=== PATIENT | male | born 1930 | race Caucasian/White ===

== ENCOUNTER → 2018-02-12 | Outpatient (CLI) | payer OTHER, BC ==
[~2018-02-12] MED LIST: ACET-1693 PO; AMLO2.5T PO; AMLO5TAB2 PO; ASPI-461 PO; BUME1TAB PO; CALCTAB7 PO; CLC100 PO; CMD4 PO; CYM/30 PO; DICL1GEL34 TD; FERR325T18 PO; FINA5TAB4 PO; GABA-113 PO; IPRA-64 INH; LANS30CA12 PO; LEVE250T PO; LEVE500T13 PO; LEVO75TA5 PO; LINA1CAP2 PO; LISI-787 PO; METO-478 PO; MISCTAB78 PO; MULT-506 PO; MULT-610 PO; OMEG10007 PO; ONDA4TAB46 PO; OPTIRAY 320 IV PRN; OXYC-90 PO; PANT40TA PO; POLY150C4 PO; POLY335019 PO; POTA-639 PO; PRAV20TA PO; RANI300T2 PO; SENN-61 PO; SPIR25TA PO; TAMS0.4C38 PO; TERA5CAP PO; TRAM-10 PO; WARF6TAB PO; melatonin PO
--- NOTE | 2018-02-12 15:09 | DIAGNOSTIC IMAGING REPORT ---
CT (CHEST) THORAX WITH CT DOSE: 204.12 mGy.cm HISTORY: Pleural effusion KNOWN RT LUNG PLEURAL EFFUSION TECHNIQUE: Multiaxial CT images of the chest were performed following the intravenous administration of contrast. A dose lowering technique was utilized adhering to the principles of ALARA. COMPARISON: None. FINDINGS: The pulmonary apices are clear. The thoracic aorta is normal in course and caliber. The pulmonary vasculature enhances appropriately. There are findings of a prior median sternotomy. The heart is moderately enlarged. There are bilateral pleural effusions. There are findings of right and to lesser extent left basilar atelectatic change. There is no significant mediastinal or hilar adenopathy. There are interstitial changes in the mid to lower lung regions bilaterally. There is a moderate compression deformity superior endplate T6. IMPRESSION: 1. Right and to lesser extent left pleural effusion with bibasilar atelectatic and volume loss-type change. 2. Moderate cardiomegaly. 3. Nonspecific interstitial change of the mid to lower lung regions bilaterally. 4. Moderate compression deformity superior endplate T6. The above report was generated using voice recognition software. It may contain grammatical, syntax or spelling errors. Electronically signed by: Angel Abebe M.D. 02/12/2018 3:08 PM Dictated Date/Time: 02/12/2018 3:04 PM
== END | disposition home or self-care (01) ==
LOC: C.CTS 14:31
PROVIDERS: ATTEND Physician Assistant Medical
DX: J90 Pleural effusion, not elsewhere classified (principal); R04.2 Hemoptysis; I51.7 Cardiomegaly; R91.8 Other nonspecific abnormal finding of lung field